=== PATIENT | female | born 2005 | race Caucasian/White ===

== ENCOUNTER 2023-02-09 13:15 | Emergency (ER) | payer BC, SELFPAY ==
[2023-02-09 13:30] VITALS: BP 131/72; PULSE 86; RESP 20; TEMP 36.9; O2SAT 99; BMI 26.4
--- NOTE | 2023-02-09 13:47 | ED_ITS ---
HPI - General Adult General Chief complaint: Upper Respiratory Infection Stated complaint: HEADACHE Time Seen by Provider: 02/09/23 13:20 Source: patient Mode of arrival: walk-in Limitations: no limitations History of Present Illness HPI narrative: patient is a 17-year-old female who presents to the emergency department for the evaluation of flulike illness for the last three days. Family member reports temperatures as high as 101.0 Fahrenheit. She has not had any objective fevers in the last day. No medications taken prior to arrival other than DayQuil. Patient reports sore throat, headache, body aches, nausea and vomiting. She is not concerned for . No sick contacts in the home. She is eating and drinking without difficulty. family member states there primary concern is that the patient has every symptom of Covid . They did not take a home Covid test. Related Data Previous Rx's Medication Instructions Recorded ketorolac 10 mg tablet 10 mg PO TID PRN pain #10 tabs 02/09/23 ondansetron 4 mg disintegrating 4 mg PO Q6H PRN nausea and 02/09/23 tablet vomiting #12 tabs Allergies Allergy/AdvReac Type Severity Reaction Status Date / Time amoxicillin Allergy Severe Verified 02/09/23 13:29 cefdinir [From Omnicef] Allergy Severe Verified 02/09/23 13:29 cephalexin Allergy Severe Verified 02/09/23 13:29 Penicillins Allergy Severe Verified 02/09/23 13:29 Review of Systems ROS Constitutional Reports: fever and chills Ears, nose, mouth, and throat Reports: throat pain; Denies: nasal congestion Respiratory Denies: shortness of breath or cough Gastrointestinal Reports: nausea and vomiting; Denies: diarrhea Integumentary/Breast Denies: rash Neurological Reports: headache PFSH PFSH Medical History (Updated 02/09/23 @ 14:10 by NAJMA White) No pertinent past medical history ?Z78.9 - Other specified health status (ICD-10) Surgical History (Updated 02/09/23 @ 13:43 by Seb Christensen) No pertinent past surgical history ?Z78.9 - Other specified health status (ICD-10) Social History Smoking status: Heavy tobacco smoker Exam Narrative Exam Narrative: Gen.: Awake, alert, in no distress Head: Normocephalic, atraumatic ENT: Moist mucous membranes, bilateral tympanic membranes clear, no pharyngeal erythema. Airway widely open and patent with clear speech, uvula midline. No trismus or drooling. Respiratory: No respiratory distress, lungs clear bilaterally Cardio: Regular rate and rhythm Gastrointestinal: Abdomen is soft, nondistended and nontender to palpation Extremities: Moves extremities equally Psych: Normal mood and affect Neuro: No focal neuro deficit Skin: Warm, dry, intact Constitutional Vital Signs, click to edit/add: Last Vital Signs Temp 98.5 F 02/09/23 13:30 Pulse 86 02/09/23 13:30 Resp 20 02/09/23 13:30 BP 131/72 02/09/23 13:30 Pulse Ox 99 02/09/23 13:30 O2 Del Method Room Air 02/09/23 13:30 Course Vital Signs Vital signs: Vital Signs Temperature 98.5 F 02/09/23 13:30 Pulse Rate 86 02/09/23 13:30 Respiratory Rate 20 02/09/23 13:30 Blood Pressure 131/72 02/09/23 13:30 Pulse Oximetry 99 02/09/23 13:30 Oxygen Delivery Method Room Air 02/09/23 13:30 Temperature 98.5 F 02/09/23 13:30 Pulse Rate 86 02/09/23 13:30 Respiratory Rate 20 02/09/23 13:30 Blood Pressure 131/72 02/09/23 13:30 Pulse Oximetry 99 02/09/23 13:30 Oxygen Delivery Method Room Air 02/09/23 13:30 Medical Decision Making [facility] Narrative Medical decision making narrative: strep, influenza and Covid screens are negative. Patient with vital signs within normal limits in the Emergency Room, benign exam. She'll be discharged home with medications for flulike illness, likely viral etiology. Follow-up with PCP and return to the Emergency Room if symptoms change or worsen. Patient in no distress in the Emergency Room. Lab Data Lab results reviewed: Yes I reviewed the patient's lab results Labs: Lab Results 02/09/23 Range/Units 13:45 SARS-CoV-2 (PCR) Negative (NEGATIVE) Influenza Type A Ag Negative Influenza Type B Ag Negative Streptococcus Screen Negative Discharge Plan Discharge Chief Complaint: Upper Respiratory Infection Clinical Impression: Flu-like symptoms, Viral infection Patient Disposition: Home, Self-Care Time of Disposition Decision: 14:10 Condition: Good Prescriptions / Home Meds: New ketorolac 10 mg tablet 10 mg PO TID PRN (Reason: pain) Qty: 10 0RF ondansetron 4 mg tablet,disintegrating 4 mg PO Q6H PRN (Reason: nausea and vomiting) Qty: 12 0RF Instructions: Viral Syndrome (ED) Stand Alone Forms: Portal Instructions Referrals: Physician,Non-Staff, MD [Primary Care Provider] - 1 week
[2023-02-09] MEDS: ONDANSETRON 4 MG RAPDIS TABLET SL (14:06)
[2023-02-09] MEDS: DEXAMETHASONE SOD PHOS 10 MG/ML VIAL PO (14:06)
[2023-02-09 14:07] LABS: Influenza Virus A Antigen Negative; Influenza Virus B Antigen Negative; Internal Control Within Normal Limits
[2023-02-09 14:08] LABS: Internal Control Within Normal Limits; SARS-CoV-2 Ag NEGATIVE (NEGATIVE); Strep A Antigen Screen Negative
[2023-02-10 14:54] LABS: SARS-CoV-2 NAA NOT DETECTED (NOT DETECTE)
== END 2023-02-09 14:31 | disposition home or self-care (01) ==
PROVIDERS: Physician Assistant; Emergency Provider Emergency Medicine
DX: B34.9 Viral infection, unspecified (principal); F17.210 Nicotine dependence, cigarettes, uncomplicated
CPT/HCPCS: 87070; 87635; 87804; 87811; 87880; 99283; J1100